=== PATIENT | female | born 1970 | race Caucasian/White ===

== ENCOUNTER 2022-07-16 15:36 | Emergency (ER) | payer OTHER ==
[~2022-07-16] VITALS: Ht 162.6 cm; Wt 61.2 kg
[2022-07-16 15:45] VITALS: BP 131/93
--- NOTE | 2022-07-16 15:52 | NUR ---
pt ambulatory to [facility] w steady gait.
[2022-07-16] MEDS ORDERED: BENZ150C2 PO (17:34)
[2022-07-16] MEDS ORDERED: IBUP-2213 PO (17:34)
[2022-07-16] MEDS ORDERED: SUD30 PO (17:34)
[2022-07-16 17:59] VITALS: BP 131/93
--- NOTE | 2022-07-16 17:59 | NUR ---
Patient discharged with v/s stable. Written and verbal after care instructions given and explained. Patient alert, oriented and verbalized understanding of instructions. Ambulatory with steady gait. All questions addressed prior to discharge. ID band removed. Patient advised to follow up with PMD. Rx of IBUPROFEN, SUDAFED, BENZONATATE (SENT) given. Patient educated on indication of medication including possible reaction and side effects. Opportunity to ask questions provided and answered.
== END 2022-07-16 17:59 | disposition home or self-care (01) ==
LOC: MED 15:36
DX: J20.9 Acute bronchitis, unspecified (principal); Z79.899 Other long term (current) drug therapy
CPT/HCPCS: 71046; 99283

== ENCOUNTER 2022-07-18 13:04 | Emergency (ER) | payer OTHER ==
[~2022-07-18] VITALS: Ht 162.6 cm; Wt 59.9 kg
[~2022-07-18 13:04] MED LIST: BENZ150C2 PO; IBUP-2213 PO; SUD30 PO
[2022-07-18 13:29] VITALS: BP 134/81
--- NOTE | 2022-07-18 13:32 | NUR ---
CALLED [facility] TO CHANGE LOCATION PICKUP FOR PREVIOUS PERSCRIPTIONS. SEND TO PT [facility] ON [address].
--- NOTE | 2022-07-18 13:38 | NUR ---
PATIENT AMBULATED TO [facility]
[2022-07-18] MEDS ORDERED: ALBUTEROL SULFATE/IPRATROPIU 3 ML SOL IH ONE (13:55)
[2022-07-18] MEDS ORDERED: FLUT1POW3 IH (13:57)
[2022-07-18] MEDS ORDERED: PRON INH (14:43)
[2022-07-18 15:00] VITALS: BP 134/81
--- NOTE | 2022-07-18 15:00 | NUR ---
Patient discharged with v/s stable. Written and verbal after care instructions given and explained. Patient alert, oriented and verbalized understanding of instructions. Ambulatory with steady gait. All questions addressed prior to discharge. ID band removed. Patient advised to follow up with PMD. Rx of FLUTICASONE, ALBUTEROL (SENT) given. Patient educated on indication of medication including possible reaction and side effects. Opportunity to ask questions provided and answered.
== END 2022-07-18 15:00 | disposition home or self-care (01) ==
LOC: MED 13:04
DX: R05.9 Cough, unspecified (principal); J45.909 Unspecified asthma, uncomplicated; Z79.899 Other long term (current) drug therapy; Z76.0 Encounter for issue of repeat prescription
CPT/HCPCS: 94640; 99283